=== PATIENT | male | born 1950 | race Caucasian/White ===

== ENCOUNTER 2019-11-11 22:02 | Emergency (ER) | payer MEDICARE, OTHER ==
[2019-11-11 22:16] VITALS: BP 150/80
[2019-11-11] MEDS ORDERED: PROPARACAINE 0.5% OPHTH DROPS 15 ML LEFTEYE STA (23:02)
--- NOTE | 2019-11-11 23:21 | ED Physician Documentation ---
PD HPI OPHTHO - Stated complaint Stated Complaint: L EYE INJ - Chief complaint Chief Complaint: Heent - History obtained from History obtained from: Patient - History of Present Illness Timing - onset: Enter time (19:00) Timing - details: Abrupt onset Pain level now: 0 Location: Left Quality / character: Other (denies pain) Associated symptoms: Redness. No: FB sensation, Double vision, Decreased vision, Loss of vision Contributing factors: Blunt trauma. No: Wears glasses, Wears contacts Similar symptoms before: Has not had sx before Recently seen: Not recently seen - Additional information Additional information: struck in left eye by a branch while doing yardwork this evening, approximately 7 pm. he has no pain, no fb sensation, no visual changes. his noticed his right eye was red and he presents to ED for this Review of Systems Eyes: reports: Other (redness of left eye). denies: Loss of vision, Decreased vision, Photophobia, Discharge, Irritation PD PAST MEDICAL HISTORY - Past Medical History Past Medical History: No - Allergies Allergies/Adverse Reactions: Allergies Allergy/AdvReac Type Severity Reaction Status Date / Time No Known Drug Allergies Allergy Verified 11/11/19 22:07 - Living Situation Living Situation: reports: With spouse/s.o. Living Arrangement: reports: At home PD ED PE NORMAL - Vitals Vital signs reviewed: Yes - General General: Alert and oriented X 3, No acute distress, Well developed/nourished - HEENT HEENT: PERRL, EOMI PD ED PE EXPANDED - HEENT HEENT Visual: 1 - bruising (subconjunctival hemorrhage that is flat. no hyphema, no FB) - Eyes Eyes: Subconj hemorrhage, Anterior chambers clear. No: Corneal FB, Corneal abrasion, Fluorescein uptake Results - Vitals Vitals: Oxygen O2 Source Room air PD MEDICAL DECISION MAKING - ED course Complexity details: considered differential, d/w patient Departure - Departure Disposition: 01 Home, Self Care Clinical Impression: Subconjunctival hemorrhage Condition: Good Instructions: ED Eye Injury Subconj Hemorrhage Discharge Date/Time: 11/11/19 23:33
== END 2019-11-11 23:33 | disposition home or self-care (01) ==
LOC: ED 22:02
DX: H11.32 Conjunctival hemorrhage, left eye (principal)
CPT/HCPCS: 99282; 99283; J3490

== ENCOUNTER 2023-12-26 08:45 | Outpatient (CLI) | payer MEDICARE, OTHER ==
[2023-12-26 12:08] LABS: BASOPHILS % (AUTO) 0.3 %; EOSINOPHILS # (AUTO) 0.1 10^3/uL (0.0-0.7); EOSINOPHILS % (AUTO) 1.4 %; HCT - HEMATOCRIT 44.8 % (42.0-52.0); HGB - HEMOGLOBIN 13.9 g/dL (14.0-18.0); LYMPHOCYTES # (AUTO) 0.9 10^3/uL (1.5-3.5); LYMPHOCYTES % (AUTO) 13.6 %; MEAN CORPUSCULAR HEMOGLOBIN 28.3 pg (27.0-31.0); MEAN CORPUSCULAR VOLUME 91.1 fL (80.0-94.0); MONOCYTES # (AUTO) 0.5 10^3/uL (0.0-1.0); MONOCYTES % (AUTO) 7.8 %; NEUTROPHILS # (AUTO) 4.9 10^3/uL (1.5-6.6); NEUTROPHILS % (AUTO) 76.7 %; PLT - PLATELET COUNT 192 10^3/uL (130-450); RED BLOOD COUNT 4.92 10^6/uL (4.70-6.10); RED CELL DISTRIBUTION WIDTH 12.9 % (12.0-15.0); WHITE BLOOD COUNT 6.4 x10^3/uL (4.8-10.8)
[2023-12-26 12:47] LABS: CALCIUM 9.8 mg/dL (8.5-10.3); CREATININE 0.9 mg/dL (0.6-1.3); POTASSIUM 4.3 mmol/L (3.5-4.5)
== END 2023-12-26 09:00 | disposition home or self-care (01) ==
LOC: LAB.N 08:45
PROVIDERS: ATTEND Physician Assistant Medical
DX: N30.00 Acute cystitis without hematuria (principal)
CPT/HCPCS: 36415; 80048; 85025; 87086

== ENCOUNTER 2023-12-27 11:35 | Outpatient (CLI) | payer MEDICARE, OTHER ==
--- NOTE | 2023-12-28 22:26 | CT Report ---
PROCEDURE: Abdomen/Pelvis WO INDICATIONS: CYSTITIS TECHNIQUE: A CT scan of the abdomen and pelvis was performed without the use of intravenous contrast. Images we re recorded and evaluated at appropriate window settings. Reformats: coronal and sagittal. For radiat ion dose reduction, the following was used: automated exposure control, adjustment of mA and/or kV ac cording to patient size. COMPARISON: None. FINDINGS: Image quality: Diagnostic. Lower chest: Unremarkable. Liver: No contour-deforming mass. Gallbladder: No radiopaque stones or wall thickening. Biliary tree: No intrahepatic or extrahepatic dilation, accounting for age. Spleen: No splenomegaly. Pancreas: No pancreatic ductal dilation. Adrenals: No adrenal nodule. Kidneys and ureters: No hydronephrosis. No contour-deforming mass. Stomach, bowel and peritoneum: No gastric or small bowel dilation. No abnormal wall thickening. No pa thologic free fluid. Lymph nodes: No central or retroperitoneal adenopathy. Vessels: No infrarenal aortic aneurysm. Aortobiiliac atherosclerotic calcifications. Reproductive organs: Prostatomegaly. Bladder: Bladder is underdistended limiting evaluation. There is mild circumferential bladder wall th ickening slightly increased when accounting for degree of distention. Pelvic lymph nodes: No adenopathy by size criteria. Bones: No aggressive osseous abnormality. Other: No significant ventral or inguinal hernia. IMPRESSION: No hydronephrosis or obstructing renal stone. Prostatomegaly with mildly increased circumferential bladder wall thickening greater than expected fo r degree of distention. Findings may represent chronic bladder outlet obstruction. No CT evidence of cystitis as clinically queried. Reviewed by: Yesy Marx MD, PhD on 12/28/2023 9:25 PM CASH Approved by: Yesy Marx MD, PhD on 12/28/2023 9:25 PM [facility] Station ID: [id number]
== END 2023-12-27 11:36 | disposition home or self-care (01) ==
LOC: DI 11:35
PROVIDERS: ATTEND Physician Assistant Medical
DX: N30.01 Acute cystitis with hematuria (principal); R10.9 Unspecified abdominal pain; N40.0 Benign prostatic hyperplasia without lower urinary tract symptoms

== ENCOUNTER 2024-02-05 07:48 | Outpatient (CLI) | payer MEDICARE, OTHER | END 2024-02-05 07:49 | disposition home or self-care (01) | LOC: LAB.N 07:48 | PROVIDERS: ATTEND Urology | DX: N40.1 Benign prostatic hyperplasia with lower urinary tract symptoms (principal); Z87.898 Personal history of other specified conditions | CPT/HCPCS: 36415; 84153 ==